=== PATIENT | male | born 1940 | race Caucasian/White ===

== ENCOUNTER 2024-10-18 23:55 | Emergency (ER) | payer OTHER ==
[~2024-10-18] VITALS: Ht 175.3 cm; Wt 66.8 kg
[2024-10-18 23:59] VITALS: BP 159/82; PULSE 74; TEMP 97.2; O2SAT 99
[2024-10-19 00:53] VITALS: RESP 16
[2024-10-19] MEDS: HYDROcodone/acetaminophen 5mg/325mg tablet PO ONE (00:53)
[2024-10-19] MEDS: LIDOcaine 5% patch TP STA (00:53)
[2024-10-19] MEDS ORDERED: ALBU8HFA INH (01:13)
[2024-10-19] MEDS ORDERED: LIDO700A32 TOP (01:14)
[2024-10-19] MEDS ORDERED: HYDR-3965 PO (01:14)
[2024-10-23] MEDS ORDERED: MECL-302 PO (11:28)
[2024-10-23] MEDS ORDERED: FURO20TA4 PO (11:28)
[2024-10-23] MEDS ORDERED: GABA-530 PO (11:28)
[2024-10-23] MEDS ORDERED: LAMO25TA5 PO (11:28)
[2024-10-23] MEDS ORDERED: EMPA10TA PO (17:12)
[2024-10-23] MEDS ORDERED: CLON0.5T4 PO (17:12)
[2024-10-23] MEDS ORDERED: FLUT1BLS4 PO (17:12)
[2024-10-23] MEDS ORDERED: ATOR40TA71 PO (17:12)
[2024-10-23] MEDS ORDERED: NITR1PAT63 TOP (17:12)
[2024-10-23] MEDS ORDERED: POTA-366 PO (17:12)
[2024-10-23] MEDS ORDERED: METO-395 PO (17:12)
[2024-10-23] MEDS ORDERED: AMI200T PO (17:12)
[2024-10-23] MEDS ORDERED: SACU1TAB PO (17:12)
[2024-10-23] MEDS ORDERED: ASPI-1144 PO (17:12)
== END 2024-10-19 01:32 | disposition home or self-care (01) ==
LOC: ER 23:56
DX: S20.211A Contusion of right front wall of thorax, initial encounter (principal); J44.9 Chronic obstructive pulmonary disease, unspecified; G89.29 Other chronic pain; W18.39XA Other fall on same level, initial encounter; Y93.89 Activity, other specified; Y92.89 Other specified places as the place of occurrence of the external cause; Y99.8 Other external cause status
CPT/HCPCS: 71046; 99283

== ENCOUNTER 2024-11-07 15:03 | Emergency (ER) | payer OTHER ==
[~2024-11-07] VITALS: Ht 175.3 cm; Wt 75.9 kg
[~2024-11-07 15:03] MED LIST: ALBU8HFA INH; AMI200T PO; ASPI-1144 PO; ATOR40TA71 PO; EMPA10TA PO; FLUT1BLS4 PO; FURO20TA4 PO; GABA-530 PO; HYDR-3965 PO; LAMO25TA5 PO; LIDO700A32 TOP; METO-395 PO; NITR1PAT63 TOP; POTA-366 PO; SACU1TAB PO
[2024-11-07] MEDS: ondansetron 4mg rapidly disintigrating tab PO ONE (17:22)
[2024-11-07] MEDS: HYDROcodone/acetaminophen 5mg/325mg tablet PO ONE (17:22)
[2024-11-07] MEDS ORDERED: HYDR-3965 PO (17:56)
[2024-11-07] MEDS ORDERED: CEPH-585 PO (17:56)
[2024-11-07 18:07] VITALS: BP 148/84; PULSE 100; RESP 18; TEMP 97.7; O2SAT 97
== END 2024-11-07 18:09 | disposition home or self-care (01) ==
LOC: ER 15:03
DX: S90.922A Unspecified superficial injury of left foot, initial encounter (principal); Z88.8 Allergy status to other drugs, medicaments and biological substances; Z79.82 Long term (current) use of aspirin; X58.XXXA Exposure to other specified factors, initial encounter; Y93.89 Activity, other specified; Y92.89 Other specified places as the place of occurrence of the external cause; Y99.8 Other external cause status
CPT/HCPCS: 73630; 99283